=== PATIENT | male | born 1940 | race Caucasian/White ===

== ENCOUNTER 2020-06-05 11:25 | Inpatient (IN) | payer MEDICARE, OTHER ==
[~2020-06-05] VITALS: Ht 175.3 cm; Wt 65.6 kg
[2020-06-05 12:16] LABS: BASO % 0.2 % (0.0-2.0); GRAN # 8.4 (1.4-6.5); HEMATOCRIT 37.3 % (42.0-52.0); LYMPH # 0.6 (1.2-3.4); LYMPH % 6.1 % (20.0-51.0); MEAN CELL VOLUME 88 fl (80.0-100.0); MEAN CORPUSCULAR HEMOGLOBIN 28 pg (27.0-31.0); MEAN CORPUSCULAR HGB CONC 32 g/dl (33.0-37.0); MONO # 0.8 (0.1-0.6); MONO % 8.3 % (1.7-9.3); PLATELET COUNT 181 K/mm3 (130-400); RED BLOOD COUNT 4.25 M/mm3 (4.20-5.60); REDCELL DISTRIBUTION WIDTH-CV 13.1 % (11.5-14.5)
[2020-06-05] MEDS ORDERED: ANDRODERM5 MG/24 HR TD (12:19)
[2020-06-05] MEDS ORDERED: SYNTHROID0.075 MG/T PO (12:19)
[2020-06-05] MEDS ORDERED: LIPITOR 10MG10 MG PO (12:20)
[2020-06-05] MEDS ORDERED: PARLODEL 2.5MG2.5 MG PO (12:21)
[2020-06-05 12:29] LABS: ALBUMIN 4.5 gm/dL (3.5-5.0); BILIRUBIN,TOTAL 0.8 mg/dL (0.0-1.0); CREATININE, serum 1.87 (0.66-1.25); INR 1.3 (0.8-3.0); POTASSIUM 4.4 mmol/L (3.4-5.0); PROTHROMBIN TIME 14.7 SECONDS (9.7-12.8); TOTAL PROTEIN 8.4 gm/dL (6.4-8.2)
[2020-06-05 12:35] LABS: COLLECTION METHOD CLEAN CATCH
[2020-06-05 12:41] LABS: C-REACTIVE PROTEIN 17.6 mg/dL (0.0-0.9); TROPONIN-I 0.043 ng/mL (0.000-0.035)
[2020-06-05 13:11] LABS: MUCOUS Present /lpf; PH 5 (5-8); SQUAMOUS EPITHELIAL 0-2 /hpf; URINE APPEARANCE Hazy; URINE BACTERIA None Seen /hpf; URINE BILIRUBIN Negative (NEGATIVE); URINE BLOOD 3+ (NEGATIVE); URINE COLOR Yellow; URINE GLUCOSE Negative (NEGATIVE); URINE KETONE Trace (NEGATIVE); URINE LEUKOCYTE ESTERASE Negative (NEGATIVE); URINE NITRATE Negative (NEGATIVE); URINE PROTEIN(semi-quant) 2+ (NEGATIVE); URINE UROBILINOGEN Negative (NEGATIVE)
[2020-06-05 16:34] VITALS: BP 118/65; PULSE 67; TEMP 98.8
[2020-06-05 16:38] VITALS: BP 118/65; PULSE 67; TEMP 98.8
--- NOTE | 2020-06-05 19:17 | NUR ---
Admission assessment completed, alert/oriented, vital signs stable, on 2L. o2 and sats WNL, denies pain or discomfort, has dry/ intermittent cough, lungs diminished with scattered fine crackles, heart RRR/distal pulses are palpable, IVF infusing, on TELE/ SR, meds/allergies/phamacy reviewed, has seen patient, I have spoke with daughter on the phone and updated and disucssed plan of care, patient eating dinner at this time and denie sother needs currently
[2020-06-05 21:03] VITALS: BP 115/65; PULSE 96; TEMP 98.1
[2020-06-05 23:03] VITALS: BP 116/72; PULSE 95; TEMP 98.4
--- NOTE | 2020-06-06 00:50 | NUR ---
TROPONIN OF 0.058 ATTEMPTED TO REPORT TO ALFRED RECINOS AND WAS UNABLE TO ANSWER. AWAITING FOR CALL BACK.
--- NOTE | 2020-06-06 01:10 | NUR ---
TROPONIN OF 0.058 REPORTED TO ALLSION, OPERATIONS/DISPATCH AND ORDERS RE-CHECK IN THE MORNING.
[2020-06-06 04:53] VITALS: BP 120/70; PULSE 100; TEMP 98.7
[2020-06-06 08:09] VITALS: BP 110/60; PULSE 88; TEMP 98.2
--- NOTE | 2020-06-06 08:14 | NUR ---
Assessment completed, alert/oriented, vital signs stable and afebrile, he denies pain, reports that he feels his breathing is easier today, he is requiring 3-4 L. o2 to keep sats >90%, lungs are diminished with scattered crackles noted, has a non-productive cough, heart RRR, patient sitting up eating breakfast at this time and denies other needs currently
[2020-06-06 12:20] VITALS: BP 127/58; PULSE 64; TEMP 97.5
[2020-06-06 13:55] LABS: GRAN # 5.7 (1.4-6.5); GRAN % 89.1 % (42.2-75.2); HEMOGLOBIN 10.7 g/dl (13.5-18.0); LYMPH # 0.4 (1.2-3.4); LYMPH % 6.7 % (20.0-51.0); MEAN CELL VOLUME 88 fl (80.0-100.0); MEAN CORPUSCULAR HEMOGLOBIN 29 pg (27.0-31.0); MEAN CORPUSCULAR HGB CONC 33 g/dl (33.0-37.0); MEAN PLATELET VOLUME 9.6 fl (7.4-10.4); MONO # 0.3 (0.1-0.6); MONO % 3.9 % (1.7-9.3); PLATELET COUNT 193 K/mm3 (130-400); RED BLOOD COUNT 3.72 M/mm3 (4.20-5.60); REDCELL DISTRIBUTION WIDTH-CV 13.2 % (11.5-14.5)
[2020-06-06 13:56] LABS: HEMATOCRIT 32.6 % (42.0-52.0)
[2020-06-06 14:06] LABS: ALBUMIN 3.8 gm/dL (3.5-5.0); BILIRUBIN,TOTAL 0.6 mg/dL (0.0-1.0); CALCIUM 8.5 mg/dL (8.4-10.2); CREATININE, serum 1.48 (0.66-1.25); POTASSIUM 4.4 mmol/L (3.4-5.0); TOTAL PROTEIN 7.2 gm/dL (6.4-8.2)
[2020-06-06 14:17] LABS: TROPONIN-I 0.022 ng/mL (0.000-0.035)
--- NOTE | 2020-06-06 16:02 | NUR ---
The patient is Covid-19 positive and is in isolation. [employer] contacted the patient's daughter, Neisha to complete intake. Phone #[phone] or cell #[phone]. The patient lives alone but Neisha is staying with the patient until he recovers. She lives in [facility] and works remotely for an [employer] there. The patient does not have DME and is independent with ADLs. The patient's PCP is Dr. Greer and patient receives medications from [facility]. The patient does not have advanced directives in the EMR but they are complete and designate her. Neisha will email a copy to this SW. The plan is to have the patient return home at discharge. The patient is currently on oxygen. If he is not weaned off, SW will assist with oxgyen order at discharge.
[2020-06-06 16:30] VITALS: BP 116/54; PULSE 64; TEMP 97.5
--- NOTE | 2020-06-06 20:00 | NUR ---
Received report from LUCAS Vo. Pt independent in room. Denies any pain, discomfort or SOB at this time. Scheduled meds administered. IVF infusing to LAC, intact, dressing CDI, reinforced with AMARI wrap. Tele monitor in place, leads checked. ON 4LO2NC, SpO2 91%. Pt voices no concerns at this time. Needs met. Made pt comfortable. Call light within reach.
[2020-06-06 20:19] VITALS: BP 102/68; PULSE 75; TEMP 97.2
[2020-06-06 23:44] VITALS: BP 95/60; PULSE 61; TEMP 97.5
--- NOTE | 2020-06-07 02:47 | NUR ---
RT notified this RN pt SpO2 in 70's% while pt was in to use BR. PT settled back into bed and placed on 10LHFNC. Pt currently on [id number], SpO2 low 90%. Attempted to notify Dr Go, left , will call again later. Will monitor pt. RT advised pt to use urinal.
[2020-06-07 04:17] VITALS: BP 97/60; PULSE 66; TEMP 97.5
--- NOTE | 2020-06-07 06:59 | NUR ---
Report given to LUCAS Krishnan.
[2020-06-07 07:56] LABS: ALBUMIN 3.5 gm/dL (3.5-5.0); BILIRUBIN,TOTAL 0.4 mg/dL (0.0-1.0); CALCIUM 8.7 mg/dL (8.4-10.2); CREATININE, serum 1.33 (0.66-1.25); POTASSIUM 4.2 mmol/L (3.4-5.0); TOTAL PROTEIN 6.7 gm/dL (6.4-8.2)
[2020-06-07 08:35] VITALS: BP 110/62; PULSE 60
--- NOTE | 2020-06-07 08:55 | NUR ---
Pt assessment complete. Pt is sitting up in bed upon entry. He is A/O x4. His breathing is even and unlabored currently on 8L O2 via NC. Pt's O2 sat's 98-99%, oxygen turned down to 6L, pt maintaining oxygen saturation will continue to monitor. Pt denies any pain. Reports intermittent cough. Requesting a shower after breakfast, will assist patient with this. No other needs at this time. Call light within reach.
[2020-06-07 09:31] LABS: HEMOGLOBIN 11.1 g/dl (13.5-18.0); MEAN CELL VOLUME 87 fl (80.0-100.0); MEAN CORPUSCULAR HEMOGLOBIN 29 pg (27.0-31.0); MEAN CORPUSCULAR HGB CONC 33 g/dl (33.0-37.0); MEAN PLATELET VOLUME 10.2 fl (7.4-10.4); PLATELET COUNT 194 K/mm3 (130-400); RED BLOOD COUNT 3.85 M/mm3 (4.20-5.60); REDCELL DISTRIBUTION WIDTH-CV 13.3 % (11.5-14.5)
[2020-06-07 09:45] LABS: HEMATOCRIT 33.4 % (42.0-52.0)
[2020-06-07 10:08] LABS: BAND 11 % (0-10); BURR CELLS 2+; LYMPHOCYTE 5 % (20.0-51.0); NEUTROPHILS 83 % (42.0-75.2); OVALOCYTES 1+; PLATELET ESTIMATE NORMAL (NORMAL)
[2020-06-07 11:18] VITALS: BP 104/64; PULSE 72; TEMP 97.3
--- NOTE | 2020-06-07 11:31 | NUR ---
SW received the patient's advance directives. SW placed the documents in the patient's chart. The patient's DPOA-HC is his daughter, Radha.
[2020-06-07 16:07] VITALS: BP 102/58; PULSE 63; TEMP 97.7
--- NOTE | 2020-06-07 19:29 | NUR ---
Pt's oxygen needs decreased to 5L O2 via NC. Pt denies any SOB. Up standing out of bed several times. Assisted with a shower today. No pain reported. POC discussed with both patient and his daughter. NO needs at this time.
[2020-06-07 20:11] VITALS: BP 106/64; PULSE 65; TEMP 96.6
[2020-06-08 00:45] VITALS: BP 108/68; PULSE 67; TEMP 96.6
[2020-06-08 04:14] VITALS: BP 105/64; PULSE 65; TEMP 96.4
--- NOTE | 2020-06-08 07:09 | NUR ---
Report given to LUCAS Kauffman.
--- NOTE | 2020-06-08 07:09 | NUR ---
Pt made no complaints during this shift. Tele monitor in place. Meds administered. Pt requested to shower this AM. PT in shower at this time. information technology security manager notified. INformed pt to notify staff when shower completed.
[2020-06-08 07:55] VITALS: BP 110/68; PULSE 70
--- NOTE | 2020-06-08 08:00 | NUR ---
PT SHOWERED THIS MORNING, NEW GOWN PROVIDED, PT ASSESSEMTN PERFORMED, MEDICATIONS GIVEN, IV REATTACHED TO PT, TELEMETRY APPLIED, BEDDING CHANGED, BATTERY IN TELEMETRY CHANGED, PT AOX4, PT ASKED TO USE CALL LIGHT WHEN PT HAS TO GET UP DUE TO PT OXYGEN DROPPING WITH EXERTION. PT EAGER TO GO HOME, EXPLAINED HIGH OXYGEN DEMANDS ADN THAT IT WOULD BE UNSAFE FOR PT TO LEAVE, VITALS TAKEN, NO OTHER NEEDS.
--- NOTE | 2020-06-08 11:49 | NUR ---
JOLANTA, PT DAUGHTER UPDATED.
[2020-06-08 13:21] VITALS: BP 105/66; PULSE 68
[2020-06-08 16:02] VITALS: BP 105/56; PULSE 71
--- NOTE | 2020-06-08 17:49 | NUR ---
PT PLEASANT, AOX4 BUT VERY FORGETFUL, UNABLE TO COMPREHEND REASON FOR CHEST XRAY EVEN THOUGH EXPLAINED MULTIPLE TIMES. PT EATING WELL, STILL REPORTING DIARRHEA, PT VITALS STABLE, DENIES PAIN OTHER THAN OCCASIONAL ABD CRAMPING. NO OTHER NEEDS AT THIS TIME.
[2020-06-08 20:00] VITALS: BP 102/62; PULSE 81; TEMP 97.6
--- NOTE | 2020-06-08 20:00 | NUR ---
Pt ambulating in room upon entry. Denies pain or SOB. on 6LO2, SpO2 88-89%. O2 increased to 7L, SpO2 92-93%. RT notified. Meds administered. Pt has no complaints at this time. INT to LFA intact, flushed w/o complications. Tele monitor in place. Needs met. Call light within reach. DtrIsabell, called and updated on pt status. Dtr states she will drop off home medication, Bromocriptine, tmrw. Will endorse to oncoming RN.
--- NOTE | 2020-06-08 22:11 | NUR ---
Dr Diaz called and updated on pt status.
[2020-06-09] VITALS (8 sets, daily range): BP systolic 103–129; BP diastolic 50–76; PULSE 50–67; TEMP 97.4–97.8
--- NOTE | 2020-06-09 06:59 | NUR ---
Report given to LUCAS Kauffman.
[2020-06-09 07:40] LABS: BASO % 0.1 % (0.0-2.0); GRAN # 14.6 (1.4-6.5); GRAN % 86.9 % (42.2-75.2); HEMOGLOBIN 10.2 g/dl (13.5-18.0); LYMPH # 0.8 (1.2-3.4); LYMPH % 4.7 % (20.0-51.0); MEAN CELL VOLUME 88 fl (80.0-100.0); MEAN CORPUSCULAR HEMOGLOBIN 29 pg (27.0-31.0); MEAN CORPUSCULAR HGB CONC 33 g/dl (33.0-37.0); MEAN PLATELET VOLUME 10.4 fl (7.4-10.4); MONO # 1.3 (0.1-0.6); MONO % 7.7 % (1.7-9.3); PLATELET COUNT 200 K/mm3 (130-400); RED BLOOD COUNT 3.49 M/mm3 (4.20-5.60); REDCELL DISTRIBUTION WIDTH-CV 13.6 % (11.5-14.5)
[2020-06-09 07:41] LABS: HEMATOCRIT 30.8 % (42.0-52.0)
[2020-06-09 07:51] LABS: ALBUMIN 3.1 gm/dL (3.5-5.0); BILIRUBIN,TOTAL 0.5 mg/dL (0.0-1.0); CALCIUM 8.6 mg/dL (8.4-10.2); CREATININE, serum 1.36 (0.66-1.25); POTASSIUM 4.3 mmol/L (3.4-5.0); TOTAL PROTEIN 6.1 gm/dL (6.4-8.2)
--- NOTE | 2020-06-09 08:00 | NUR ---
PT PLEASANT, AOX4, FORGETFUL, WANTED TO SHOWER, INFORMED HIM HE COULD NOT SHOWER DUE TO HIS OXYGEN DROPPING SO LOW WHEN HE GETS UP. PT APPEARS TO BE UNDERSTANDING. PT ASKED TO BE WHEELED TO A DIFFERENT SHOWER WHENEVER HE IS ABLE TO SHOWER AGAIN HE IS UNHAPPY WITH HIS. EXPLAINED DUE TO COVID THIS WOULD NOT BE POSSIBLE, PT VITALS STABLE, DAUGHTER BROUGHT MORE HOME MEDICATIONS. BATH WIPES BROUGHT IN FOR PT ALONG WITH A FRESH GOWN, NEW ICE WATER BROUGHT IN, MEDICATIONS GIVE, ASSESSMENT PERFORMED, NO OTHER NEEDS.
--- NOTE | 2020-06-09 08:40 | NUR ---
ENTERED PT ROOM TO BRING IN BREAKFAST TRAY. PT STANDING AT SINK BLOWING NOSE WITHOUT OXYGEN IN, PT SOB AND HAVING LABORED TACHYPNIC BREATHING. O2 SAT AT 73%. OXYGEN PLACED ON PT, PT HELPED BACK INTO BED. INC OXYGEN TO 10L, HUMIDIFIER FILLED UP, PT OXYGEN GRADUALLY INC TO 90%. INFORMED PT TO STAY IN BED MUCH POSSIBLE. PT VERBALIZED UNDERSTANDING. POELL AWARE.
--- NOTE | 2020-06-09 09:31 | NUR ---
pt daughter updated.
--- NOTE | 2020-06-09 09:33 | NUR ---
recieved call from tele of pt HR dropping into the 30's.
--- NOTE | 2020-06-09 09:43 | NUR ---
informed Dr. Palomino of HR consistantly in 40's and dropping into the 30's.
--- NOTE | 2020-06-09 17:10 | NUR ---
PT AOX4 BUT FORGETFUL, COMPLYING WITH RESTING IN BED, PT ON 8L HIGH FLOW, PT HAS NOT HAD HYPOXIC EPISODE SINCE THIS MORNING, PT DENIES DIARRHEA, PT DENIES PAIN OR DISCOMFORT, NO OTHER NEEDS.
--- NOTE | 2020-06-09 18:24 | NUR ---
tele called reporting pt in vfib, checked on pt, had noisy signal, pt talking to me about his hiccups, pt asymptomatic, pt tele now looks normal, checked back in with telemetry in icu to confirm, Helene SALEEM aware.
[2020-06-10 03:55] VITALS: BP 114/62; PULSE 59; TEMP 97.5
--- NOTE | 2020-06-10 08:00 | NUR ---
Patient sitting up in bed eatting breakfast. A&Ox4. VSS 7L High flow NC O2. No reported SOB, just increase coughing. IV CDI. Droplet/contact precautions in place. Patch to left thigh. Patient just wanting a hot shower. Will assist with getting warm water for a shower. No further needs expressed from the patient. Call light within reach
[2020-06-10 08:01] VITALS: BP 118/64; PULSE 63; TEMP 98.1
[2020-06-10 12:17] VITALS: BP 118/58; PULSE 64; TEMP 97.6
[2020-06-10 16:16] VITALS: BP 120/62; PULSE 67; TEMP 97.6
--- NOTE | 2020-06-10 18:08 | NUR ---
Patient had an uneventful day. A&Ox3. VSS titrated O2 to 3.5 L NC and tolerating well. IV CDI. Patient was upset that he was not able to get a hot shower due to no hot water and decreased water pressure. Karen aware. Droplet/contact precautions in place. Daughter has been delivering patient meals throughout the day, which the patient has liked better than the hospital food. Nursing staff aware of the patients desire for a hot shower. Will address tomorrow. Patient is really wanting to go home soon. Nurse has been in contact with the daughter Neisha over the phone several times. No further needs expressed from the patient. Call light within reach
[2020-06-10 20:00] VITALS: BP 125/79; PULSE 70; TEMP 97.5
--- NOTE | 2020-06-10 20:40 | NUR ---
Received report from LUCAS Gold. PT a/o x4, reading a book upon entry. Denies any pain, SOB or discomfort at this time. Pt stating that he wants to go home but understands POC. On 3.5LO2, SpO2 94%. meds administered. INT to LFA intact, flushed, dressing CDI. Tele monitor in place, leads checked. Foam cushion applied to NC. Needs met at this time. call light within reach.
[2020-06-11 00:02] VITALS: BP 123/79; PULSE 63; TEMP 97.6
[2020-06-11 04:03] VITALS: BP 127/72; PULSE 69; TEMP 98.1
--- NOTE | 2020-06-11 06:31 | NUR ---
Pt uneventful during the night. Meds administered. Call light within reach.
--- NOTE | 2020-06-11 06:59 | NUR ---
Report given to LUCAS Chacon.
[2020-06-11 08:20] VITALS: BP 111/72; PULSE 76; TEMP 98.3
[2020-06-11] MEDS ORDERED: PROAIR HFA0.09 MG/AC IH (10:05)
[2020-06-11] MEDS ORDERED: ASPIRIN E.C. 8181 MG PO (10:06)
[2020-06-11] MEDS ORDERED: DECADRON6 MG PO (10:07)
[2020-06-11] MEDS ORDERED: CHERATUSSIN AC120 ML PO (10:08)
[2020-06-11] MEDS ORDERED: OXYGEN (10:30)
--- NOTE | 2020-06-11 10:58 | NUR ---
Assessment complete. Patient resting in bed on entry. Requests to leave and is anxious to go home. IV site is CD&I. No complaints of pain or discomfort. PAtient is aware that will be in to see him shortly. No other needs at this time. Call light is in reach.
--- NOTE | 2020-06-11 11:32 | NUR ---
The patient is to discharge home today, 06/11 with his daughter/DPOA-HC, Neisha. The patient is requiring oxygen. JOHNIE discussed DME choices with Neisha. She chose [facility]. JOHNIE faxed referral. Mer with [facility] states she would like family to bead picker the oxygen supplies due to the patient having Covid-19. JOHNIE informed Neisha and was agreeable to bead picker the oxgyen supplies. She will bead picker at 1330. JOHNIE collaborated the above information with the patient's nurse.
[2020-06-11 12:50] VITALS: BP 119/73; PULSE 74; TEMP 98.1
--- NOTE | 2020-06-11 15:11 | NUR ---
Patient left the floor at this time. Discharge instructions were discussed. No further questions or concerns.
== END 2020-06-11 15:11 | disposition home or self-care (01) | DRG 177 ==
LOC: COL.ER 11:25 → PEDS 14:18
PROVIDERS: Nurse Practitioner Primary Care; ADMIT Hospitalist
PROC: XW033E5 Introduction of Remdesivir Anti-infective into Peripheral Vein, Percutaneous Approach, New Technology Group 5 (ICD-10-PCS; principal; 2020-06-05)
DX: U07.1 COVID-19 (principal); J96.01 Acute respiratory failure with hypoxia; I21.A1 Myocardial infarction type 2; J12.89 Other viral pneumonia; N17.9 Acute kidney failure, unspecified; E29.1 Testicular hypofunction; Z66 Do not resuscitate; E03.9 Hypothyroidism, unspecified; R00.1 Bradycardia, unspecified; E78.5 Hyperlipidemia, unspecified; Z87.891 Personal history of nicotine dependence
CPT/HCPCS: 99222-AI; 99232-AI; 99233-AI; 99239; J0696; J1650; J7030; J7050; J8540